=== PATIENT | male | born 1935 | race Caucasian/White ===

== ENCOUNTER 2020-09-02 11:59 | Outpatient (CLI) | payer MEDICARE, BC ==
[~2020-09-02] VITALS: Ht 177.8 cm; Wt 81.6 kg
[~2020-09-02 11:59] MED LIST: ACETAMINOPHEN-1 EAC1 PO; BAYER CHEWABLE81 MG PO; LEVAQUIN500 MG PO; LEVOFLOXACIN250 MG PO; PRINIVIL20 MG PO; PROSCAR5 MG PO; TYLENOL 500 MG500 MG PO
[2020-09-02 12:45] LABS: RED BLOOD COUNT 4.57 M/UL (4.20-5.50); WHITE BLOOD COUNT 10.8 K/UL (4.5-11.0)
[2020-09-02 13:03] LABS: BUN/CREATININE RATIO 18 (0-10)
[2020-09-02] MEDS ORDERED: VOLTAREN100 GM TP (13:56)
[2020-09-02] MEDS ORDERED: HYDROCODON-ACE1 EACH PO (16:01)
[2020-09-02] MEDS ORDERED: LEVOFLOXACIN500 MG PO (16:01)
[2020-09-02] MEDS ORDERED: FLOMAX0.4 MG PO (17:43)
[2020-09-03] MEDS ORDERED: LEVOFLOXACIN500 MG PO (13:41)
== END 2020-09-03 14:11 | disposition home or self-care (01) ==
LOC: CATH 11:59 → PROG CARE 16:18 → CATH 09-03 14:11
PROVIDERS: Internal Medicine Cardiovascular Disease
DX: I44.7 Left bundle-branch block, unspecified (principal); I44.1 Atrioventricular block, second degree; I10 Essential (primary) hypertension; M15.9 Polyosteoarthritis, unspecified; I49.5 Sick sinus syndrome; U07.1 COVID-19; Z79.82 Long term (current) use of aspirin; Z79.899 Other long term (current) drug therapy; Z82.5 Family history of asthma and other chronic lower respiratory diseases; Z87.891 Personal history of nicotine dependence
CPT/HCPCS: 33208; 36415; 71045; 71046; 80048; 85025; 87635; 99152; 99153; C1898; C2621; J1200; J1644; J2250; J3010; J3370; J7040; J7050; J7070

== ENCOUNTER → 2020-10-15 | Outpatient (CLI) | payer MEDICARE, BC ==
[~2020-10-15] MED LIST changes: +AUGMENTIN 875-1 EACH PO; +CEFDINIR300 MG PO; +ELIQUIS 2.5 MG2.5 MG PO; +ELIQUIS5 MG PO; +FLOMAX0.4 MG PO; +HYDROCODON-ACE1 EAC4 PO; +HYDROCODON-ACE1 EACH PO; +HYDROCODONE-AC1 EAC1 PO; +ISOSORBIDE MONO30 MG PO; +K-DUR TAB 20 M20 MEQ PO; +LASIX20 MG PO; +LEVOFLOXACIN500 MG PO; +VIBRAMYCIN100 MG PO; +VITAMIN B-12500 MCG PO; +VOLTAREN100 GM TP; +ZYVOX600 MG PO
== END ==
LOC: HEART 5 07:50
DX: Z01.810 Encounter for preprocedural cardiovascular examination (principal); I49.5 Sick sinus syndrome; R55 Syncope and collapse; I44.7 Left bundle-branch block, unspecified; Z79.82 Long term (current) use of aspirin; Z79.899 Other long term (current) drug therapy
CPT/HCPCS: 78452; A9502; J2785

== ENCOUNTER → 2020-10-27 | Outpatient (CLI) | payer MEDICARE, BC ==
[2020-10-27 10:39] LABS: HEMOGLOBIN 12.4 gm/dl (14.0-17.5); RED BLOOD COUNT 4.14 M/UL (4.20-5.50); WHITE BLOOD COUNT 10.1 K/UL (4.5-11.0)
[2020-10-27 10:54] LABS: BUN/CREATININE RATIO 27 (0-10)
== END ==
LOC: OPSV2 09:00 → EDSTATUS 09:00 → OPSV2 09:16
PROVIDERS: Orthopaedic Surgery
DX: Z01.818 Encounter for other preprocedural examination (principal); M17.12 Unilateral primary osteoarthritis, left knee
CPT/HCPCS: 36415; 80048; 81001; 85025; 87081; 93005

== ENCOUNTER → 2020-11-03 | Outpatient (CLI) | payer MEDICARE, BC ==
[2020-11-03 09:22] LABS: BUN/CREATININE RATIO 25 (0-10)
== END ==
LOC: LAB 08:28
PROVIDERS: Orthopaedic Surgery
DX: Z01.812 Encounter for preprocedural laboratory examination (principal)
CPT/HCPCS: 36415; 80048; 86850; 86900; 86901

== ENCOUNTER 2020-11-04 06:18 | Day surgery (SDC) | payer MEDICARE, BC ==
[~2020-11-04] VITALS: Ht 177.8 cm; Wt 88.9 kg
[~2020-11-04 06:18] MED LIST changes: -AUGMENTIN 875-1 EACH PO; -CEFDINIR300 MG PO; -ELIQUIS 2.5 MG2.5 MG PO; -ELIQUIS5 MG PO; -HYDROCODON-ACE1 EAC4 PO; -HYDROCODONE-AC1 EAC1 PO; -ISOSORBIDE MONO30 MG PO; -K-DUR TAB 20 M20 MEQ PO; -LASIX20 MG PO; -VIBRAMYCIN100 MG PO; -VITAMIN B-12500 MCG PO; -ZYVOX600 MG PO
[2020-11-04] MEDS ORDERED: VITAMIN B-12500 MCG PO (07:02)
[2020-11-04] MEDS ORDERED: ELIQUIS5 MG PO (07:03)
[2020-11-04] MEDS ORDERED: ISOSORBIDE MONO30 MG PO (07:04)
[2020-11-04] MEDS ORDERED: ACETAMINOPHEN-1 EAC1 PO (11:50)
[2020-11-04 16:37] LABS: BUN/CREATININE RATIO 25 (0-10)
[2020-11-05 04:25] LABS: HEMOGLOBIN 10.9 gm/dl (14.0-17.5); RED BLOOD COUNT 3.63 M/UL (4.20-5.50); WHITE BLOOD COUNT 15.5 K/UL (4.5-11.0)
[2020-11-05] MEDS ORDERED: ELIQUIS 2.5 MG2.5 MG PO (10:23)
== END 2020-11-05 13:25 | disposition home or self-care (01) ==
LOC: OR 06:18 → EDSTATUS 07:45 → M/S 14:45 → OR 11-05 13:25
PROVIDERS: Family Medicine; Orthopaedic Surgery
DX: M17.12 Unilateral primary osteoarthritis, left knee (principal); G89.29 Other chronic pain; I10 Essential (primary) hypertension; N40.0 Benign prostatic hyperplasia without lower urinary tract symptoms; I48.91 Unspecified atrial fibrillation; Z79.82 Long term (current) use of aspirin; Z82.5 Family history of asthma and other chronic lower respiratory diseases; Z79.899 Other long term (current) drug therapy; Z95.0 Presence of cardiac pacemaker
CPT/HCPCS: 36415; 73560; 80048; 80053; 85025; 97110-GP-CQ; 97116-GP-CQ; 97161; 97166; 97535; C1776; J0592; J0690; J1100; J1885; J2001; J2270; J2704; J2795; J3010; J3370; J7120

== ENCOUNTER 2020-12-08 10:14 | Emergency (ER) | payer MEDICARE, BC ==
[~2020-12-08 10:14] MED LIST changes: +ELIQUIS 2.5 MG2.5 MG PO; +ELIQUIS5 MG PO; +ISOSORBIDE MONO30 MG PO; +VITAMIN B-12500 MCG PO
[2020-12-08 13:48] LABS: BUN/CREATININE RATIO 23 (0-10)
[2020-12-08 14:15] LABS: HEMOGLOBIN 10.1 gm/dl (14.0-17.5); RED BLOOD COUNT 3.62 M/UL (4.20-5.50); WHITE BLOOD COUNT 10.3 K/UL (4.5-11.0)
[2020-12-08] MEDS ORDERED: VIBRAMYCIN100 MG PO (15:40)
[2020-12-08] MEDS ORDERED: K-DUR TAB 20 M20 MEQ PO (15:40)
[2020-12-08] MEDS ORDERED: CEFDINIR300 MG PO (15:40)
[2020-12-08] MEDS ORDERED: LASIX20 MG PO (15:40)
== END 2020-12-08 15:55 | disposition home or self-care (01) ==
LOC: ER1 10:14
PROVIDERS: Physician Assistant
DX: L03.116 Cellulitis of left lower limb (principal); R60.0 Localized edema; I50.9 Heart failure, unspecified; E11.9 Type 2 diabetes mellitus without complications; Z20.822 Contact with and (suspected) exposure to COVID-19; I10 Essential (primary) hypertension; Z87.440 Personal history of urinary (tract) infections
CPT/HCPCS: 0240U; 71045; 80053; 81001; 82550; 82553; 83874; 83880; 84484; 85025; 85652; 86140; 93005; 93970; 96374; 99284; J1940

== ENCOUNTER 2020-12-14 19:42 | Inpatient (IN) | payer MEDICARE, BC ==
[~2020-12-14] VITALS: Ht 177.8 cm; Wt 68.8 kg
[~2020-12-14 19:42] MED LIST changes: +CEFDINIR300 MG PO; +K-DUR TAB 20 M20 MEQ PO; +LASIX20 MG PO; +VIBRAMYCIN100 MG PO
[2020-12-14 20:28] LABS: RED BLOOD COUNT 3.46 M/UL (4.20-5.50); WHITE BLOOD COUNT 16.2 K/UL (4.5-11.0)
[2020-12-14] MEDS ORDERED: ELIQUIS 2.5 MG2.5 MG PO (21:34)
[2020-12-15 03:17] LABS: HEMOGLOBIN 8.9 gm/dl (14.0-17.5); RED BLOOD COUNT 3.12 M/UL (4.20-5.50); WHITE BLOOD COUNT 14.4 K/UL (4.5-11.0)
[2020-12-16 04:56] LABS: HEMOGLOBIN 7.6 gm/dl (14.0-17.5); WHITE BLOOD COUNT 12.3 K/UL (4.5-11.0)
[2020-12-16 04:57] LABS: RED BLOOD COUNT 2.61 M/UL (4.20-5.50)
--- NOTE | 2020-12-17 02:35 | NUR ---
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 PT BECAME VERY CONFUSED AFTER RECIEVING AMBIEN LASTNIGHT. PT IS RIPPING EVERYTHING OFF, TRYING TO TAKE KNEE IMMOBILIZER OFF, TRYING TO CLIMB OUT OF BED ETC. TRINIDAD STATED THAT SHE WOULD TRY TO FIND A SITTER AND CALL ME BACK.
--- NOTE | 2020-12-17 02:48 | NUR ---
PASTER HAT LINING (TRINIDAD) SENT MIRTHA TO SIT WITH PT UNTIL BLOOD TRANSFUSION IS COMPLETE.
[2020-12-17 05:55] LABS: HEMOGLOBIN 8.5 gm/dl (14.0-17.5); RED BLOOD COUNT 2.86 M/UL (4.20-5.50)
[2020-12-17 05:56] LABS: WHITE BLOOD COUNT 16.9 K/UL (4.5-11.0)
[2020-12-17 06:11] LABS: BUN/CREATININE RATIO 26 (0-10)
[2020-12-19 04:23] LABS: HEMOGLOBIN 8.8 gm/dl (14.0-17.5); RED BLOOD COUNT 3.02 M/UL (4.20-5.50); WHITE BLOOD COUNT 14.1 K/UL (4.5-11.0)
--- NOTE | 2020-12-19 18:29 | NUR ---
PATIENT BP 94/39. MD NOTIFIED. NEW ORDERS FOR 500ML BOLUS OF NORMAL SALINE X1
[2020-12-20] MEDS ORDERED: HYDROCODON-ACE1 EAC4 PO (09:12)
[2020-12-20 13:05] LABS: HEMOGLOBIN 9.8 gm/dl (14.0-17.5); RED BLOOD COUNT 3.3 M/UL (4.20-5.50); WHITE BLOOD COUNT 16.2 K/UL (4.5-11.0)
[2020-12-20 13:18] LABS: BUN/CREATININE RATIO 17 (0-10)
[2020-12-21 12:56] LABS: HEMOGLOBIN 9.2 gm/dl (14.0-17.5); RED BLOOD COUNT 3.11 M/UL (4.20-5.50); WHITE BLOOD COUNT 16.9 K/UL (4.5-11.0)
[2020-12-21 13:19] LABS: BUN/CREATININE RATIO 14 (0-10)
[2020-12-21] MEDS ORDERED: ZYVOX600 MG PO (18:54)
[2020-12-21] MEDS ORDERED: AUGMENTIN 875-1 EACH PO (18:54)
[2020-12-22] MEDS ORDERED: HYDROCODONE-AC1 EAC1 PO (10:05)
--- NOTE | 2020-12-22 11:00 | NUR ---
CALLED PHARMACIST AT [facility] AND SHE STATES NO HYDROCODONE RX E SCRIPTED AT THIS TIME BUT WOULD PLACE NOTE IF ONE DOSE COME THROUGH TO CANCLE ORDER. DR. GIOVANNI JOSEPH.
--- NOTE | 2020-12-22 12:38 | NUR ---
REPORT CALLED TO [facility] NURSE KOTA
[2020-12-22 13:00] LABS: RED BLOOD COUNT 3.1 M/UL (4.20-5.50); WHITE BLOOD COUNT 14.7 K/UL (4.5-11.0)
--- NOTE | 2020-12-22 13:04 | NUR ---
[facility] NOTIFIED OF NEED OF TRANSPORT
[2020-12-22 13:22] LABS: BUN/CREATININE RATIO 11 (0-10)
== END 2020-12-22 13:33 | DRG 480 ==
LOC: ER1 19:42 → CDU 21:20 → PROG CARE 21:20 → EDBD 21:20 → MED SURG 4 21:20 → PROG CARE 12-15 01:33 → MED SURG 4 12-16 11:02
PROVIDERS: Emergency Medicine; Internal Medicine; Orthopaedic Surgery; ADMIT Internal Medicine
PROC: 0SPD09Z Removal of Liner from Left Knee Joint, Open Approach (ICD-10-PCS; 2020-12-15)
PROC: 0SBD0ZZ Excision of Left Knee Joint, Open Approach (ICD-10-PCS; 2020-12-15)
PROC: 0QSF04Z Reposition Left Patella with Internal Fixation Device, Open Approach (ICD-10-PCS; 2020-12-15)
PROC: 0LQR0ZZ Repair Left Knee Tendon, Open Approach (ICD-10-PCS; 2020-12-15)
PROC: 0SUW09Z Supplement Left Knee Joint, Tibial Surface with Liner, Open Approach (ICD-10-PCS; 2020-12-15)
PROC: 0QSC04Z Reposition Left Lower Femur with Internal Fixation Device, Open Approach (ICD-10-PCS; principal; 2020-12-15 12:00)
DX: T84.54XA Infection and inflammatory reaction due to internal left knee prosthesis, initial encounter (principal); J18.9 Pneumonia, unspecified organism; G92 Toxic encephalopathy; Z20.822 Contact with and (suspected) exposure to COVID-19; S82.002A Unspecified fracture of left patella, initial encounter for closed fracture; I48.20 Chronic atrial fibrillation, unspecified; J90 Pleural effusion, not elsewhere classified; D62 Acute posthemorrhagic anemia; R44.2 Other hallucinations; S72.422A Displaced fracture of lateral condyle of left femur, initial encounter for closed fracture; T84.023A Instability of internal left knee prosthesis, initial encounter; I10 Essential (primary) hypertension; I49.5 Sick sinus syndrome; M25.462 Effusion, left knee; D47.3 Essential (hemorrhagic) thrombocythemia; T42.6X5A Adverse effect of other antiepileptic and sedative-hypnotic drugs, initial encounter; S76.112A Strain of left quadriceps muscle, fascia and tendon, initial encounter; N40.0 Benign prostatic hyperplasia without lower urinary tract symptoms; Z96.652 Presence of left artificial knee joint; M17.11 Unilateral primary osteoarthritis, right knee; S39.012A Strain of muscle, fascia and tendon of lower back, initial encounter; Y83.9 Surgical procedure, unspecified as the cause of abnormal reaction of the patient, or of later complication, without mention of misadventure at the time of the procedure; Y92.89 Other specified places as the place of occurrence of the external cause; Z98.42 Cataract extraction status, left eye; Z95.0 Presence of cardiac pacemaker; Z79.01 Long term (current) use of anticoagulants; Z87.891 Personal history of nicotine dependence; Y99.8 Other external cause status; Z98.890 Other specified postprocedural states
CPT/HCPCS: 36415; 36430; 71046; 73030; 73560; 73564; 80048; 80053; 80202; 83605; 83735; 85018; 85025; 85027; 85610; 85652; 86140; 86850; 86900; 86901; 86920; 87040; 87070; 87081; 87205; 93005; 96374; 96375; 97110; 97110-GP-CQ; 97162; 97166; 97530-GP-CQ; 99284; C1713; C1776; J0171; J0690; J0696; J1100; J1650; J2270; J2405; J2543; J2704; J2795; J3010; J3370; J7040; J7050; J7070; J7120; P9016; U0002

== ENCOUNTER → 2021-02-09 | Outpatient (CLI) | payer MEDICARE, BC ==
[~2021-02-09] MED LIST changes: +AUGMENTIN 875-1 EACH PO; +BACTRIM DS TAB1 EACH PO; +BACTROBAN OINT22 GM EXT; +CEPHALEXIN500 MG PO; +DOXYCYCLINE HY100 MG PO; +HYDROCODON-ACE1 EAC4 PO; +HYDROCODONE-AC1 EAC1 PO; -TYLENOL 500 MG500 MG PO; +TYLENOL EXTRA500 MG PO; +ZYVOX600 MG PO
== END ==
LOC: WCC 08:15
DX: T81.31XA Disruption of external operation (surgical) wound, not elsewhere classified, initial encounter (principal); M97.12XA Periprosthetic fracture around internal prosthetic left knee joint, initial encounter; E46 Unspecified protein-calorie malnutrition; I48.91 Unspecified atrial fibrillation; I10 Essential (primary) hypertension; Z87.891 Personal history of nicotine dependence; Z79.891 Long term (current) use of opiate analgesic; Z79.01 Long term (current) use of anticoagulants; Z79.899 Other long term (current) drug therapy
CPT/HCPCS: G0463

== ENCOUNTER → 2021-02-25 | Outpatient (CLI) | payer MEDICARE, BC | LOC: WCC 13:18 | DX: T81.31XA Disruption of external operation (surgical) wound, not elsewhere classified, initial encounter (principal); M97.12XA Periprosthetic fracture around internal prosthetic left knee joint, initial encounter; I48.91 Unspecified atrial fibrillation; E46 Unspecified protein-calorie malnutrition; I10 Essential (primary) hypertension; Z79.01 Long term (current) use of anticoagulants; Z79.2 Long term (current) use of antibiotics; Z79.899 Other long term (current) drug therapy ==

== ENCOUNTER → 2021-03-11 | Outpatient (CLI) | payer MEDICARE, BC | LOC: WCC 08:56 | DX: S81.002A Unspecified open wound, left knee, initial encounter (principal); I10 Essential (primary) hypertension; I48.91 Unspecified atrial fibrillation; Z96.652 Presence of left artificial knee joint; Z79.01 Long term (current) use of anticoagulants; T81.31XD Disruption of external operation (surgical) wound, not elsewhere classified, subsequent encounter; M97.12XA Periprosthetic fracture around internal prosthetic left knee joint, initial encounter; E46 Unspecified protein-calorie malnutrition ==

== ENCOUNTER → 2021-03-25 | Outpatient (CLI) | payer MEDICARE, BC ==
[~2021-03-25] MED LIST changes: -BACTRIM DS TAB1 EACH PO; -BACTROBAN OINT22 GM EXT; -CEPHALEXIN500 MG PO; -DOXYCYCLINE HY100 MG PO; +TYLENOL 500 MG500 MG PO; -TYLENOL EXTRA500 MG PO
== END ==
LOC: WCC 08:17
PROC: 0JBP0ZZ Excision of Left Lower Leg Subcutaneous Tissue and Fascia, Open Approach (ICD-10-PCS; principal; 2021-03-25)
DX: T81.31XA Disruption of external operation (surgical) wound, not elsewhere classified, initial encounter (principal); I48.91 Unspecified atrial fibrillation; I10 Essential (primary) hypertension; E46 Unspecified protein-calorie malnutrition; Z68.26 Body mass index [BMI] 26.0-26.9, adult; Z79.01 Long term (current) use of anticoagulants; Z79.891 Long term (current) use of opiate analgesic; Z79.899 Other long term (current) drug therapy; Z79.1 Long term (current) use of non-steroidal anti-inflammatories (NSAID); Y83.8 Other surgical procedures as the cause of abnormal reaction of the patient, or of later complication, without mention of misadventure at the time of the procedure

== ENCOUNTER → 2021-04-08 | Outpatient (CLI) | payer MEDICARE, BC | LOC: WCC 08:15 | DX: T81.31XA Disruption of external operation (surgical) wound, not elsewhere classified, initial encounter (principal); M97.12XA Periprosthetic fracture around internal prosthetic left knee joint, initial encounter; E46 Unspecified protein-calorie malnutrition; I48.91 Unspecified atrial fibrillation; I10 Essential (primary) hypertension; Z79.899 Other long term (current) drug therapy | CPT/HCPCS: 97597 ==

== ENCOUNTER → 2021-04-22 | Outpatient (CLI) | payer MEDICARE, BC ==
[~2021-04-22] MED LIST changes: +BACTRIM DS TAB1 EACH PO; +BACTROBAN OINT22 GM EXT; +CEPHALEXIN500 MG PO; +DOXYCYCLINE HY100 MG PO; -TYLENOL 500 MG500 MG PO; +TYLENOL EXTRA500 MG PO
== END ==
LOC: WCC 08:30
DX: T81.31XA Disruption of external operation (surgical) wound, not elsewhere classified, initial encounter (principal); E46 Unspecified protein-calorie malnutrition; I48.91 Unspecified atrial fibrillation; I10 Essential (primary) hypertension; W19.XXXA Unspecified fall, initial encounter
CPT/HCPCS: 97597

== ENCOUNTER 2021-04-27 12:51 | Inpatient (IN) | payer MEDICARE, BC ==
[~2021-04-27] VITALS: Ht 177.8 cm; Wt 83.9 kg
[~2021-04-27 12:51] MED LIST changes: -BACTRIM DS TAB1 EACH PO; -BACTROBAN OINT22 GM EXT; -CEPHALEXIN500 MG PO; -DOXYCYCLINE HY100 MG PO
[2021-04-27 14:24] LABS: HEMOGLOBIN 12.2 gm/dl (14.0-17.5); RED BLOOD COUNT 4.51 M/UL (4.20-5.50)
[2021-04-27 14:28] LABS: WHITE BLOOD COUNT 12.2 K/UL (4.5-11.0)
[2021-04-27] MEDS ORDERED: BACTRIM DS TAB1 EACH PO (15:52)
[2021-04-27] MEDS ORDERED: CEPHALEXIN500 MG PO (15:52)
[2021-04-27] MEDS ORDERED: BACTROBAN OINT22 GM EXT (15:52)
[2021-04-28 06:31] LABS: HEMOGLOBIN 11.5 gm/dl (14.0-17.5); RED BLOOD COUNT 4.25 M/UL (4.20-5.50); WHITE BLOOD COUNT 12.2 K/UL (4.5-11.0)
[2021-04-28 06:54] LABS: BUN/CREATININE RATIO 16 (0-10)
[2021-04-29 06:00] LABS: HEMOGLOBIN 11.1 gm/dl (14.0-17.5); RED BLOOD COUNT 4.16 M/UL (4.20-5.50); WHITE BLOOD COUNT 8.9 K/UL (4.5-11.0)
[2021-04-29 06:24] LABS: BUN/CREATININE RATIO 17 (0-10)
[2021-04-29] MEDS ORDERED: DOXYCYCLINE HY100 MG PO (09:15)
[2021-04-29] MEDS ORDERED: LEVOFLOXACIN500 MG PO (09:15)
== END 2021-04-29 11:10 | disposition home health service (06) | DRG 863 ==
LOC: ER1 12:51 → CDU 16:23 → MED SURG 4 16:23
PROVIDERS: Emergency Medicine; ADMIT Internal Medicine
DX: T81.40XA Infection following a procedure, unspecified, initial encounter (principal); T81.31XA Disruption of external operation (surgical) wound, not elsewhere classified, initial encounter; I48.20 Chronic atrial fibrillation, unspecified; N30.00 Acute cystitis without hematuria; L03.116 Cellulitis of left lower limb; I44.7 Left bundle-branch block, unspecified; I10 Essential (primary) hypertension; Z20.822 Contact with and (suspected) exposure to COVID-19; N40.0 Benign prostatic hyperplasia without lower urinary tract symptoms; Z96.651 Presence of right artificial knee joint; B96.20 Unspecified Escherichia coli [E. coli] as the cause of diseases classified elsewhere; Y83.8 Other surgical procedures as the cause of abnormal reaction of the patient, or of later complication, without mention of misadventure at the time of the procedure; I49.5 Sick sinus syndrome; Z95.0 Presence of cardiac pacemaker; Z98.49 Cataract extraction status, unspecified eye; Z95.818 Presence of other cardiac implants and grafts; Z79.01 Long term (current) use of anticoagulants; Z82.49 Family history of ischemic heart disease and other diseases of the circulatory system; Z87.891 Personal history of nicotine dependence
CPT/HCPCS: 36415; 73564; 80053; 80202; 81001; 82550; 83605; 83735; 83880; 84100; 85025; 85027; 85652; 86140; 87040; 87070; 87077; 87086; 87186; 87205; 94760; 97162; 97165; 99284; J0692; J3370; J7030; J7050; J7070; U0002